=== PATIENT | female | born 1980 | race African-American/Black ===

== ENCOUNTER 2017-04-28 10:40 | Emergency (ER) | payer OTHER ==
[~2017-04-28] VITALS: Ht 167.6 cm; Wt 80.3 kg
[~2017-04-28 10:40] MED LIST: PRENATAL1 TA4 PO; REG10 PO
[2017-04-28 11:00] VITALS: Ht 167.6 cm; Wt 80.3 kg
[2017-04-28 12:04] LABS: BASOPHIL % 1.5 % (0-2); PLATELET COUNT 271 x10^3mcL (130-400)
[2017-04-28 12:12] LABS: rbc morphology (normal/abnorm) ABNORMAL (NORMAL)
[2017-04-28 12:33] LABS: CALCIUM 8.9 mg/dL (8.5-10.1); CARBON DIOXIDE 24.4 mmol/L (21-32); CHLORIDE SERUM 104 mmol/L (98-107); GFR1 > 60 mL/min; GLUCOSE SERUM 88 mg/dL (74-106); POTASSIUM SERUM 4.1 mmol/L (3.5-5.1); SODIUM SERUM 137 mmol/L (136-145)
[2017-04-28 12:38] LABS: ALBUMIN 3.8 g/dL (3.4-5.0); ALKALINE PHOSPHATASE 41 U/L (46-116); ALT/SGPT 15 U/L (14-59); AST/SGOT 11 U/L (15-37); BILIRUBIN TOTAL 0.86 mg/dL (0.20-1.00); TOTAL PROTEIN, SERUM 7.7 g/dL (6.4-8.2)
[2017-04-28 14:00] VITALS: BP 120/68
== END 2017-04-28 13:30 | disposition home or self-care (01) ==
LOC: ED 10:40
PROVIDERS: Emergency Medicine
DX: N12 Tubulo-interstitial nephritis, not specified as acute or chronic (principal)
CPT/HCPCS: 36415